=== PATIENT | female | born 1975 ===

== ENCOUNTER 2019-04-26 12:05 | Emergency (ER) | payer OTHER ==
[~2019-04-26] VITALS: Ht 160 cm; Wt 92.1 kg
[2019-04-26 12:36] VITALS: Ht 160 cm; Wt 92.1 kg
[2019-04-26 14:06] VITALS: BP 126/78
== END 2019-04-26 14:06 | disposition home or self-care (01) ==
LOC: ED 12:05
DX: K80.50 Calculus of bile duct without cholangitis or cholecystitis without obstruction (principal)